=== PATIENT | female | born 1960 | race Caucasian/White ===

== ENCOUNTER 2017-06-20 19:49 | Emergency (ER) | payer OTHER ==
[2017-06-20 19:58] VITALS: BP 119/72; PULSE 83; RESP 20; TEMP 97.6; O2SAT 98
--- NOTE | 2017-06-20 22:17 | PD ---
HPI . Bug Bite, laceration Chief Complaint: Skin Problem Time Seen by Provider: 21:33 Travel History International Travel<30 days: No Contact w/Intl Traveler<30days: No Traveled to known affect area: No History of Present Illness HPI 57-year-old female presents to the emergency department for evaluation of a small red area on the left medial aspect of the lower leg proximal to the medial malleolus that she first noticed a day and a half ago. The patient believes that it was a bug bite but is becoming painful. The area is 1 cm x 0.5cm of erythema but there is no signs or symptoms of cellulitis or abscess at this time. He denies any history of diabetes. Patient denies any major medical history all. Patient does not take any daily medications and has no known allergies. Patient also would like to be seen for a small laceration she sustained on her left second digit earlier today when cutting but shuffles. The laceration is approximately 0.4cm on the left distal palmar aspect of her second digit. Patient states that she was using was tanika and she would like her tetanus updated. She denies any fevers, chills, malaise, shortness breath, chest pain, nausea, vomiting, diarrhea, lightheadedness. PFSH Past Medical History Medical History: Denies Significant Hx Tetanus Vaccination: Unknown Influenza Vaccination: No Past Surgical History Section: Yes Hysterectomy: Yes Social History Alcohol Use: Yes (RARE) Tobacco Use: No Substance Use: No Allergies-Medications (Allergen,Severity, Reaction): Coded Allergies: No Known Allergies (Unverified , 06/20/17) Reported Meds & Prescriptions Reported Meds & Active Scripts Active No Active Prescriptions or Reported Medications Review of Systems Except as stated in HPI: all other systems reviewed are Neg Physical Exam Narrative GENERAL: Well-nourished, well-developed 57-year-old female patient in no acute distress. Nontoxic appearing. SKIN: 1cm x 0.5cm red spot on medial aspect of left lower leg proximal to the medial malleolus. 0.4cm laceration to the distal palmar aspect of the left second digit. HEAD: Normocephalic. Atraumatic. EYES: No scleral icterus. No injection or drainage. NECK: Supple, trachea midline. No JVD or lymphadenopathy. CARDIOVASCULAR: Regular rate and rhythm without murmurs, gallops, or rubs. RESPIRATORY: Breath sounds equal bilaterally. No accessory muscle use. GASTROINTESTINAL: Abdomen soft, non-tender, nondistended. MUSCULOSKELETAL: No cyanosis, or edema. BACK: Nontender without obvious deformity. No CVA tenderness. Data Data Last Documented VS Vital Signs Date Time Temp Pulse Resp B/P (MAP) Pulse Ox O2 Delivery O2 Flow Rate FiO2 06/20/17 19:58 97.6 83 20 119/72 (88) 98 MDM Medical Decision Making Medical Screen Exam Complete: Yes Emergency Medical Condition: Yes Differential Diagnosis Differential diagnoses include but not limited to bug bite, cellulitis, laceration Narrative Course 57-year-old female resents emergency department for evaluation of red spot to the medial aspect of the left lower leg and laceration to the distal palmar aspect of the left second digit. Patient's tetanus will be updated. Wound care will be performed to both areas and patient will be discharged home with instructions to follow-up with her primary care. Diagnosis Primary Impression: Laceration of finger Qualified Codes: S61.211A - Laceration without foreign body of left index finger without damage to nail, initial encounter Referrals: Primary Care Physician Patient Instructions: Finger Laceration (ED), General Instructions Additional Instructions: Please return to emergency department with any signs or symptoms of infection or worsening infection such as redness, warmth, increasing pain and fevers. Follow up with your primary care provider. Keep wounds clean and dry. Scripts No Active Prescriptions or Reported Meds Disposition: 01 DISCHARGE HOME Condition: Stable DonnaAarti Wilma KRAFT Jun 20, 2017 22:17
[2017-06-20] MEDS ORDERED: TETANUS/DIPHTHERIA TOXOID ADULT 0.5 ML VIAL IM ONE (22:30)
== END 2017-06-20 22:32 | disposition home or self-care (01) ==
LOC: PHED 19:49 → PHEFT 22:32
DX: S61.211A Laceration without foreign body of left index finger without damage to nail, initial encounter (principal); W45.8XXA Other foreign body or object entering through skin, initial encounter; Y93.89 Activity, other specified; Z23 Encounter for immunization
CPT/HCPCS: 90471; 90714